=== PATIENT | female | born 1985 | race Caucasian/White ===

== ENCOUNTER 2017-09-09 05:37 | Emergency (ER) | payer OTHER ==
[~2017-09-09] VITALS: Ht 160 cm; Wt 63.5 kg
[2017-09-09 05:37] VITALS: BP 132/90
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
[2017-09-09] MEDS ORDERED: IV NORMAL SALINE 1000ML BAG 1,000 ML IV SCH (06:30)
[2017-09-09] MEDS ORDERED: ONDANSETRON PF 4 MG/2 ML VIAL. IV ONE (06:30)
== END 2017-09-09 06:37 | disposition left against medical advice (07) ==
LOC: ER 05:52
DX: M79.631 Pain in right forearm (principal); F12.10 Cannabis abuse, uncomplicated; Z88.0 Allergy status to penicillin; V49.40XA Driver injured in collision with unspecified motor vehicles in traffic accident, initial encounter; Y93.89 Activity, other specified; Y99.8 Other external cause status; Y92.488 Other paved roadways as the place of occurrence of the external cause
CPT/HCPCS: 99283

== ENCOUNTER 2019-02-17 01:53 | Emergency (ER) | payer SELFPAY ==
[~2019-02-17] VITALS: Ht 160 cm; Wt 63.5 kg
[2019-02-17 01:55] VITALS: BP 132/99
[2019-02-17 02:52] LABS: INFLUENZA A PATIENT NEGATIVE (NEGATIVE); INFLUENZA B PATIENT NEGATIVE (NEGATIVE)
[2019-02-17] MEDS ORDERED: CLIN300C8 PO (03:17)
[2019-02-17] MEDS ORDERED: KETOROLAC 30 MG/ML VIAL. IM ONE (03:30)
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
== END 2019-02-17 03:24 | disposition home or self-care (01) ==
LOC: ER 01:53
DX: J02.9 Acute pharyngitis, unspecified (principal); M79.18 Myalgia, other site; R59.0 Localized enlarged lymph nodes; Z88.0 Allergy status to penicillin; Z98.890 Other specified postprocedural states
CPT/HCPCS: 87804; 96372; 99283; J1885

== ENCOUNTER 2021-05-15 14:15 | Emergency (ER) | payer OTHER ==
[~2021-05-15] VITALS: Ht 160 cm; Wt 70.0 kg
[~2021-05-15 14:15] MED LIST: CLIN300C9 PO
[2021-05-15] MEDS ORDERED: IV NORMAL SALINE 1000ML BAG 1,000 ML IV ONE (15:45)
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
[2021-05-15 16:56] LABS: BASO # 0.1 x10^3/uL (0.0-0.2); BASO % 1 % (0-3); EOS # 0.2 x10^3/uL (0.0-0.7); EOS % 3 % (0-3); HEMATOCRIT 39.8 % (36.0-47.0); HEMOGLOBIN 13.7 g/dL (12.0-15.5); LYMPH # 1.2 x10^3/uL (1.0-4.8); LYMPH % 18 % (24-48); MEAN CORPUSCULAR HEMOGLOBIN 29 pg (25-35); MEAN CORPUSCULAR HGB CONC 34 g/dL (31-37); MEAN CORPUSCULAR VOLUME 85 fL (79-100); MONO # 0.7 x10^3/uL (0.0-1.1); MONO % 10 % (0-9); NEUT # 4.4 x10^3/uL (1.8-7.7); NEUT % 68 % (31-73); PLATELET COUNT 263 x10^3/uL (140-400); RED BLOOD COUNT 4.69 x10^6/uL (3.50-5.40); RED CELL DISTRIBUTION WIDTH 13.5 % (11.5-14.5); WHITE BLOOD COUNT 6.5 x10^3/uL (4.0-11.0)
--- NOTE | 2021-05-15 17:41 | RAD ---
Exam: Chest one view INDICATION: test, cough TECHNIQUE: Frontal view of the chest Comparisons: None FINDINGS: The cardiomediastinal silhouette and pulmonary vessels are within normal limits. The lung and pleural spaces are clear. IMPRESSION: No acute cardiopulmonary process. Electronically signed by: Maxi Pastrana MD (05/15/2021 5:39 PM) LACI
[2021-05-15 17:50] VITALS: BP 126/81
--- NOTE | 2021-05-17 10:33 | NUR ---
IP: Informed pt of negative covid test. Pt verbalized understanding.
== END 2021-05-15 17:59 | disposition home or self-care (01) ==
LOC: ER 14:15
DX: B34.9 Viral infection, unspecified (principal); Z20.822 Contact with and (suspected) exposure to COVID-19; F17.200 Nicotine dependence, unspecified, uncomplicated
CPT/HCPCS: 36415; 71045; 85025; 96360; 99284; J7030; U0003